=== PATIENT | male | born 1995 | race Two or more races ===

== ENCOUNTER 2023-10-14 23:22 | Emergency (ER) | payer MEDICAID, OTHER ==
[~2023-10-14] VITALS: Ht 172.7 cm; Wt 98.4 kg
[2023-10-15] MEDS: IBUPROFEN 800 MG TAB PO ONE (01:15)
[2023-10-15] MEDS ORDERED: IBUP-1455 PO (01:15)
[2023-10-15 01:25] VITALS: BP 128/86; PULSE 78; RESP 18; TEMP 99; O2SAT 98
== END 2023-10-15 01:26 | disposition home or self-care (01) ==
LOC: ER 23:22
DX: S20.211A Contusion of right front wall of thorax, initial encounter (principal); R51.9 Headache, unspecified; Z88.0 Allergy status to penicillin; Y04.2XXA Assault by strike against or bumped into by another person, initial encounter; Y93.89 Activity, other specified; Y92.89 Other specified places as the place of occurrence of the external cause; Y99.8 Other external cause status
CPT/HCPCS: 71111